=== PATIENT | female | born 1995 | race Caucasian/White ===

== ENCOUNTER 2017-05-05 14:53 | Emergency (ER) | payer BC ==
[2017-05-05 15:12] VITALS: TEMP 98; BMI 24.2
[2017-05-05 16:45] LABS: BASO % 0.5 % (0-2.0); EOS % 0.6 % (0-4.5); HEMATOCRIT 39.4 % (32.4-45.2); HEMOGLOBIN 13.1 GM/dL (10.7-15.3); LYMPH % 9.5 % (8-40); MCH 28.3 pg (25.7-33.7); MCHC 33.3 g/dl (32.0-36.0); MEAN CELL VOLUME 84.9 fl (80-96); MEAN PLT VOLUME 10.3 fl (7.5-11.1); MONO % 4.6 % (3.8-10.2); NEUT % 84.8 % (42.8-82.8); PLATELET COUNT 123 K/MM3 (134-434); RBC 4.65 M/mm3 (3.60-5.2); RDW 13.9 % (11.6-15.6); WHITE BLOOD COUNT 5.2 K/mm3 (4.0-10.0)
--- NOTE | 2017-05-05 16:45 | PDOC ---
History of Present Illness <Patricia Mcgovern - Last Filed: 05/05/17 19:06> - General History Source: Patient Exam Limitations: No Limitations - History of Present Illness Initial Comments: 05/05/17 16:59 The patient is a 22 year old female with no significant past medical history who presents to the ED with complaints of one day of left lower quadrant pain. The patient reports an onset on lower quadrant pain that radiates to her bilateral flank and bilateral lower back. Patient states her pain is a 6/10 and she took 2 advil this morning with no relief of present symptoms. She also reports lightheadedness and dizziness associated with present symptoms. Patient states she normally gets regular periods but states her present symptoms do not feel like her period. Patient is currently being followed by a stripper and opaquer apprentice for having low white cell count, low red cell count, and low platelet count. Denies a hx of fibroids or cysts. Denies fever or chills. Denies nausea, vomiting, or chills. Denies chest pain or shortness of breath. Denies dysuria or change in urinary output. Denies any other symptoms. Maternal hx: The patients mother in her 30s of ovarian cancer. <Jeremiah Edouard - Last Filed: 05/05/17 19:15> - General Chief Complaint: Pain, Acute Stated Complaint: PELVIC PAIN Time Seen by Provider: 05/05/17 16:02 Past History - Past Medical History COPD: No Other medical history: Irregular menstrual cycle - Immunization History Immunization Up to Date: Yes - Suicide/Smoking/Psychosocial Hx Smoking History: Never smoked Have you smoked in the past 12 months: No Information on smoking cessation initiated: No Hx Alcohol Use: No Drug/Substance Use Hx: Yes (Marijuana) Substance Use Type: None <Patricia Mcgovern - Last Filed: 05/05/17 19:06> <Jeremiah Edouard - Last Filed: 05/05/17 19:15> - Past Medical History Allergies/Adverse Reactions: Allergies Allergy/AdvReac Type Severity Reaction Status Date / Time No Allergy Information Allergy Verified 05/05/17 15:04 Available Home Medications: Ambulatory Orders Cephalexin Monohydrate [Keflex -] 500 mg PO Q6H #20 capsule 01/08/16 Review of Systems - Review of Systems Able to Perform ROS?: Yes Comments:: 05/05/17 16:59 CONSTITUTIONAL: Absent: fever, chills, diaphoresis, generalized weakness, malaise, loss of appetite HEENT: Absent: rhinorrhea, nasal congestion, throat pain, throat swelling, difficulty swallowing, mouth swelling, ear pain, eye pain, visual Changes CARDIOVASCULAR: Absent: chest pain, syncope, palpitations, irregular heart rate, lightheadedness , peripheral edema RESPIRATORY: Absent: cough, shortness of breath, dyspnea with exertion, orthopnea, wheezing, stridor, hemoptysis GASTROINTESTINAL: + abdominal pain Absent: abdominal distension, nausea, vomiting, diarrhea, constipation, melena, hematochezia GENITOURINARY: + flank pain Absent: dysuria, frequency, urgency, hesitancy, hematuria, genital pain MUSCULOSKELETAL: + back pain Absent: joint swelling SKIN: Absent: rash, itching, pallor HEMATOLOGIC/IMMUNOLOGIC: Absent: easy bleeding, easy bruising, lymphadenopathy, frequent infections ENDOCRINE: Absent: unexplained weight gain, unexplained weight loss, heat intolerance, cold intolerance NEUROLOGIC: Absent: headache, focal weakness or paresthesias, dizziness, unsteady gait, seizure, mental status changes, bladder or bowel incontinence PSYCHIATRIC: Absent: anxiety, depression, suicidal or homicidal ideation, hallucinations. All Other Systems: Reviewed and Negative <Jeremiah Edouard - Last Filed: 05/05/17 19:15> *Physical Exam - Vital Signs Last Vital Signs Temp Pulse Resp BP Pulse Ox 98.0 F 68 17 122/76 100 05/05/17 15:06 05/05/17 15:06 05/05/17 15:06 05/05/17 15:06 05/05/17 15:06 <Patricia Mcgovern - Last Filed: 05/05/17 19:06> - Vital Signs Last Vital Signs Temp Pulse Resp BP Pulse Ox 98.0 F 68 17 122/76 100 05/05/17 15:06 05/05/17 15:06 05/05/17 15:06 05/05/17 15:06 05/05/17 15:06 - Physical Exam Comments: 05/05/17 19:14 GENERAL: Well developed, well nourished. Awake and alert. No acute distress. HEENT: Normocephalic, atraumatic. PERRLA, EOMI. No conjunctival pallor. Sclera are non- icteric. Moist mucous membranes. Oropharynx is clear. NECK: Supple. Full ROM. No JVD. Carotid pulses 2+ and symmetric, without bruits. No thyromegaly. NCo lymphadenopathy. CARDIOVASCULAR: Regular rate and rhythm. No murmurs, rubs, or gallops. Distal pulses are 2+ and symmetric. PULMONARY: No evidence of respiratory distress. Lungs clear to auscultation bilaterally. No wheezing, rales or rhonchi. ABDOMINAL: + chronic menstrual cramps Soft. Non-tender. Non-distended. No rebound or guarding. No organomegaly. Normoactive bowel sounds. MUSCULOSKELETAL Normal range of motion at all joints. No bony deformities or tenderness. No CVA tenderness. EXTREMITIES: No cyanosis. No clubbing. No edema. No calf tenderness. SKIN: Warm and dry. Normal capillary refill. No rashes. No jaundice. NEUROLOGICAL: Alert, awake, appropriate. Cranial nerves 2-12 intact. No deficits to light touch and temperature in face, upper extremities and lower extremities. No motor deficits in the in face, upper extremities and lower extremities. Normoreflexic in the upper and lower extremities. Normal speech. Toes are down- going bilaterally. Gait is normal without ataxia. PSYCHIATRIC: Cooperative. Good eye contact. Appropriate mood and affect. <Jeremiah Edouard - Last Filed: 05/05/17 19:15> ED Treatment Course - LABORATORY CBC & Chemistry Diagram: 05/05/17 16:40 05/05/17 16:40 <Patricia Mcgovern - Last Filed: 05/05/17 19:06> - LABORATORY CBC & Chemistry Diagram: 05/05/17 16:40 05/05/17 16:40 - ADDITIONAL ORDERS Additional order review: Laboratory Results 05/05/17 16:45 Urine Color Yellow Urine Appearance Cloudy Urine pH 5.0 Ur Specific [place] 1.027 Urine Protein 2+ H Urine Glucose (UA) Negative Urine Ketones Trace H Urine Blood 3+ H Urine Nitrite Negative Urine Bilirubin Negative Urine Urobilinogen Negative Ur Leukocyte Esterase Trace Urine HCG, Qual Negative 05/05/17 16:40 RBC 4.65 MCV 84.9 MCHC 33.3 RDW 13.9 MPV 10.3 Neutrophils % 84.8 H D Lymphocytes % 9.5 D Monocytes % 4.6 Eosinophils % 0.6 D Basophils % 0.5 - RADIOLOGY Radiograph Interpretation: 05/05/17 18:43 EXAM: US PELVIC COMPLETE TV/ US PELVIS DUPLEX COLOR DOPPLER IMPRESSION: 1. Complex left cyst measuring approximately 5.1 x 3.8 x 5.0. 2. Normal arterial and venous Doppler flow and waveforms is seen in both ovaries. Reported by: Imaging last ironer <Jeremiah Edouard - Last Filed: 05/05/17 19:15> Medical Decision Making - Medical Decision Making 05/05/17 16:45 2-year-old female presents with menstrual cramps. She states that she has a long history of stroke, painful menstruation. She also has a history of anemia and has been followed by stripper and opaquer apprentice. Family history significant for her mother who is due tp ovarian cancer in her 30s <Patricia Mcgovern - Last Filed: 05/05/17 19:06> *DC/Admit/Observation/Transfer <Patricia Mcgovern - Last Filed: 05/05/17 19:06> - Attestations Scribe Attestion: 05/05/17 16:59 Documentation prepared by Jeremiah Edouard, acting as director of graduate medical education for Patricia Mcgovern MD <Jeremiah Edouard - Last Filed: 05/05/17 19:15> Diagnosis at time of Disposition: Menstrual cramps, Left ovarian cyst - Discharge Dispostion Disposition: HOME Condition at time of disposition: Stable - Referrals Referrals: Ree Bender [Primary Care Provider] - - Patient Instructions Printed Discharge Instructions: DI for Ovarian Cyst Additional Instructions: Please follow up with your experimental plastics fabricator - Post Discharge Activity
[2017-05-05 16:55] LABS: URINE APPEARANCE CLOUDY; URINE BILIRUBIN NEGATIVE (<2.0 mg/dL); URINE BLOOD 3+ (NEGATIVE); URINE COLOR YELLOW; URINE GLUCOSE (UA) NEGATIVE (NEGATIVE); URINE KETONE TRACE (NEGATIVE); URINE LEUK ESTERASE TRACE (NEGATIVE); URINE NITRITE NEGATIVE (NEGATIVE); URINE UROBILINOGEN NEGATIVE mg/dL (0.2-1.0)
[2017-05-05 16:56] LABS: URINE PROTEIN 2+ (NEGATIVE)
[2017-05-05 16:58] LABS: HCG,QUALITATIVE URINE NEGATIVE
[2017-05-05 17:02] LABS: EPI CELLS RARE /HPF (FEW); URINE MUCUS RARE
[2017-05-05 17:09] LABS: ALBUMIN 4.1 g/dl (3.4-5.0); ALK PHOS 69 U/L (45-117); ANION GAP 7 (8-16); BILIRUBIN,TOTAL 0.2 mg/dL (0.2-1.0); BLOOD UREA NITROGEN 10 mg/dL (7-18); CALCIUM 8.6 mg/dL (8.5-10.1); CHLORIDE 106 mmol/L (98-107); CO2 26 mmol/L (21-32); CREATININE 0.6 mg/dL (0.55-1.02); GLUCOSE,RANDOM 99 mg/dL (74-106); POTASSIUM 3.8 mmol/L (3.5-5.1); SGOT/AST 91 U/L (15-37); SGPT/ALT 37 U/L (12-78); SODIUM 139 mmol/L (136-145)
[2017-05-05] MEDS ORDERED: IBUPROFEN 600 MG TABLET (FP) PO ONE ×2 (19:06→19:40)
[2017-05-05 20:01] VITALS: BP 125/72; PULSE 80
== END 2017-05-05 19:56 | disposition home or self-care (01) ==
LOC: JER 14:53
DX: N83.202 Unspecified ovarian cyst, left side (principal); N94.6 Dysmenorrhea, unspecified
CPT/HCPCS: 36415; 76830-TC; 80053; 81003; 81015; 84703; 85025; 86850; 86900; 86901; 99282-25

== ENCOUNTER 2018-09-19 13:55 | Emergency (ER) | payer OTHER, BC ==
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
[2018-09-19 14:09] VITALS: BP 105/56; PULSE 62; TEMP 98.6; BMI 25.8
[2018-09-19] MEDS ORDERED: KETOROLAC TROMETHAMINE 30 MG/1 ML VIAL IM ONE (15:00)
[2018-09-19] MEDS ORDERED: CYCLOBENZAPRINE HCL 10 MG TABLET (FP) PO ONE (15:00)
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
[2018-09-19] MEDS ORDERED: CYCLOBENZAPRINE HCL 10 MG TABLET (FP) ONE (15:51)
[2018-09-19] MEDS ORDERED: KETOROLAC TROMETHAMINE 30 MG/1 ML VIAL ONE (15:52)
== END 2018-09-19 16:52 | disposition home or self-care (01) ==
LOC: JERFT 13:55
PROC: 3E0233Z Introduction of Anti-inflammatory into Muscle, Percutaneous Approach (ICD-10-PCS; principal; 2018-09-19)
DX: R25.2 Cramp and spasm (principal); V43.62XA Car passenger injured in collision with other type car in traffic accident, initial encounter; Y93.89 Activity, other specified; Y92.410 Unspecified street and highway as the place of occurrence of the external cause
CPT/HCPCS: 72040-TC; 84703; 99281-25